=== PATIENT | female | born 1970 | race Two or more races ===

== ENCOUNTER 2024-01-11 22:41 | Emergency (ER) | payer OTHER ==
[~2024-01-11] VITALS: Ht 152.4 cm; Wt 68.1 kg
[2024-01-12] MEDS ORDERED: TRAM50TA2 PO (01:07)
[2024-01-12 01:39] VITALS: BP 137/72; PULSE 63; RESP 18; TEMP 97.7; O2SAT 97
== END 2024-01-12 01:48 | disposition home or self-care (01) ==
LOC: ER 22:41
DX: S02.2XXA Fracture of nasal bones, initial encounter for closed fracture (principal); E07.9 Disorder of thyroid, unspecified; W18.39XA Other fall on same level, initial encounter; Y93.89 Activity, other specified; Y92.89 Other specified places as the place of occurrence of the external cause; Y99.8 Other external cause status
CPT/HCPCS: 70450; 70486